=== PATIENT | male | born 1975 | race Caucasian/White ===

== ENCOUNTER 2016-07-12 11:50 | Emergency (ER) | payer OTHER ==
[~2016-07-12] VITALS: Ht 167.6 cm; Wt 111.6 kg
[2016-07-12 11:59] VITALS: BP 149/83
--- NOTE | 2016-07-12 12:05 | NUR ---
PATIENT TO BED 6 AT THIS TIME.
--- NOTE | 2016-07-12 12:17 | NUR ---
PT REFERRED TO ER FROM PCP FOR EVALUATION OF ABSCESS TO BASE OF NECK.HAS 12 CM ERYTHEMA NOTED AND SCABBING AT THE CENTER OF THE ABSCESS. PAIN SCALE OF 10/10.PT DENIES CP/SOB/FEVER.DENIES ANY MEDICAL HX.PT TOOK MEDICATION FROM URGENT CARE BUT DIDN'T HELP. 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 NO ACUTE DISTESS NOTED AT THIS TIME.SAFETY PRECAUTION INSTITUTED;SIDE RAILS UP,BRAKES OF BED APPLIED. AT BEDSIDE. MADE AWARE OF PT'S CONDITION.
[2016-07-12] MEDS ORDERED: LIDOCAINE 1% 500 MG/50 ML VIAL INJ ONE (12:20)
--- NOTE | 2016-07-12 12:36 | NUR ---
PT SITTING IN BED, NO DISTRESS NOTED, ABSCESS ON UPPER BACK INTACT NO BLEEDING NOTED, REDNESS NOTED ON THE ABSCESS.
--- NOTE | 2016-07-12 12:39 | NUR ---
DR. JAVIER AT BEDSIDE
--- NOTE | 2016-07-12 12:57 | NUR ---
PA AT BEDSIDE
--- NOTE | 2016-07-12 13:01 | NUR ---
DR MATHUR AT BEDSIDE
--- NOTE | 2016-07-12 13:30 | NUR ---
Pt arrived to ED from []. DNR in chart dated. Pt wishes [g ED.DNR].Patient discharged with v/s stable. Written and verbal after care instructions given and explained. Patient alert, oriented and verbalized understanding of instructions. Ambulatory with steady gait. All questions addressed prior to discharge. ID band removed. Patient advised to follow up with PMD. DR MATHUR ADVISED PT TO CONTINUE ANTIBIOTIC GIVEN BY THE URGENT CARE.ENCOURAGED PT TO INCREASE FLUID INTAKE AND TAKE VIT C FOR FAST WOUND HEALING PROCESS AND PT AGREED TO IT . Opportunity to ask questions provided and answered.
[2016-07-12 13:32] VITALS: BP 140/83
== END 2016-07-12 13:32 | disposition home or self-care (01) ==
LOC: MED 11:53
DX: L03.312 Cellulitis of back [any part except buttock and flank] (principal); L02.212 Cutaneous abscess of back [any part, except buttock and flank]
CPT/HCPCS: 10060; 99283; J2001